=== PATIENT | female | born 1970 | race Caucasian/White ===

== ENCOUNTER 2017-05-01 19:52 | Emergency (ER) | payer OTHER ==
[2017-05-01 20:00] VITALS: BP 136/72
--- NOTE | 2017-05-01 21:07 | UC ---
Skin Complaint HPI - HPI Summary HPI Summary: BEE STING TO LEFT SHOULDER AND LEFT FOREARM ON 04/29/17. NO THROAT TIGHTENING, NO DIFFICULTY BREATHING, OR SHORTNESS OF BREATH. SWELLING AND REDNESS AT SITE OF STING SEEMS TO BE INCREASING OVER LAST TWO DAYS. - History of Current Complaint Chief Complaint: UCSkin Time Seen by Provider: 05/01/17 20:02 Stated Complaint: BEE STINGS X 2 DAYS AGO Hx Obtained From: Patient, Family/Durable Medical Equipment Technician Hx Last Menstrual Period: 05/11/17 Onset/Duration: Sudden Onset, Lasting Days, Still Present Skin Exposure Onset/Duration: Days Ago Onset Severity: Mild Current Severity: Mild Pain Intensity: 4 Pain Scale Used: 0-10 Numeric Location: Discrete - LEFT SHOULDER LEFT FOREARM Character: Pruritus, Redness, Raised Aggravating: Nothing Alleviating: Antihistamines Associated Signs & Symptoms: Positive: Rash, Tenderness Related History: Insect Bite/Sting, Possible Reaction to: Insect - Allergy/Home Medications Allergies/Adverse Reactions: Allergies Allergy/AdvReac Type Severity Reaction Status Date / Time No Known Allergies Allergy Verified 05/01/17 20:00 Review of Systems Constitutional: Negative Skin: Rash - LEFT SHOULDER, LEFT FOREARM Eyes: Negative ENT: Negative Respiratory: Negative Cardiovascular: Negative Gastrointestinal: Negative Genitourinary: Negative Motor: Negative Neurovascular: Negative Musculoskeletal: Negative Neurological: Negative Psychological: Negative All Other Systems Reviewed And Are Negative: Yes PMH/Surg Hx/FS Hx/Imm Hx Previously Healthy: Yes - Surgical History Surgical History: None Surgery Procedure, Year, and Place: cystocopy 1994, 2004 - Family History Known Family History: Negative: Diabetes - Social History Occupation: Employed Full-time Lives: With Family Alcohol Use: Rare Substance Use Type: None Smoking Status (MU): Never Smoked Tobacco Physical Exam Triage Information Reviewed: Yes Appearance: Well-Appearing, No Pain Distress, Well-Nourished Vital Signs: Initial Vital Signs Temp 98.4 F 05/01/17 19:57 Pulse 76 05/01/17 19:57 Resp 16 05/01/17 19:57 BP 136/72 05/01/17 19:57 Pulse Ox 100 05/01/17 19:57 Vital Signs Reviewed: Yes Eye Exam: Normal ENT Exam: Normal ENT: Positive: Normal ENT inspection, TMs normal Dental Exam: Normal Neck exam: Normal Neck: Positive: Supple, Nontender Respiratory Exam: Normal Respiratory: Positive: Chest non-tender, Lungs clear Cardiovascular Exam: Normal Cardiovascular: Positive: RRR, No Murmur Abdominal Exam: Normal Abdomen Description: Positive: Nontender, No Organomegaly Musculoskeletal Exam: Normal Neurological Exam: Normal Psychological Exam: Normal Skin: Positive: rashes - ERYTHEMA LEFT SHOULDER, LEFT FOREARM Course/Dx - Differential Diagnoses - Skin Complaint Differential Diagnoses: Cellulitis, Contact Dermatitis, Impetigo, MRSA, Poison Kira, Poison Viola, Systemic Illness, Tick Born Illness, Tinea, Urticaria, Varicella Zoster - Diagnoses Provider Diagnoses: INSCET BITE (BEE STING) LEFT SHOULDER, LEFT FOREARM Discharge - Discharge Plan Condition: Stable Disposition: HOME Prescriptions: Triamcinolone 0.1% Oint (NF) [Triamcinolone Acetonide] 1 % TOPICAL BID #1 tube Patient Education Materials: Insect Bite or Sting (ED) Referrals: Non Staff,Doctor [Primary Care Provider] - Images Front/Back of Body, Lg ([place]): 1 - 3CM X 2CM ERRYTHEMA 2 - 1CM X 2CM SCANT ERYTHEMA
== END 2017-05-01 20:29 | disposition home or self-care (01) ==
LOC: UCCORT 19:52
DX: T63.441A Toxic effect of venom of bees, accidental (unintentional), initial encounter (principal); M79.89 Other specified soft tissue disorders; Y92.9 Unspecified place or not applicable
CPT/HCPCS: 99212; G0463

== ENCOUNTER 2017-06-26 19:24 | Emergency (ER) | payer OTHER ==
[2017-06-26 19:41] VITALS: BP 130/74
--- NOTE | 2017-06-26 20:45 | UC ---
Skin Complaint HPI - HPI Summary HPI Summary: TWO DAYS OF TENDER ITCHY RASH ALONG CREASE OF ABDOMINAL FOLD ABOVE MONS. NO BLISTERS, NO DISCHARGE. NO FEVER. NO TRAUMA. NO TICK BITES. NO HISTORY OF MRSA - History of Current Complaint Chief Complaint: UCSkin Time Seen by Provider: 06/26/17 19:53 Stated Complaint: RASH LOWER ABDOMEN ? SHINGLES Hx Obtained From: Patient, Family/Librarian Hx Last Menstrual Period: 05/11/17 Onset/Duration: Gradual Onset, Lasting Days, Still Present Skin Exposure Onset/Duration: Days Ago Onset Severity: Mild Current Severity: Mild Pain Intensity: 0 Pain Scale Used: 0-10 Numeric Character: Pruritus, Redness, Painful - TENDER Aggravating: Touch Alleviating: Nothing, Unknown Associated Signs & Symptoms: Positive: Rash, Tenderness. Negative: Fever, Chills, Cough, Wheezing, Chest Pain, Hoarseness, Throat Tightening, Abdominal Pain, Syncope, Drainage, Bruising, Red Streaks Related History: Possible Reaction to: Environmental Exposure - Allergy/Home Medications Allergies/Adverse Reactions: Allergies Allergy/AdvReac Type Severity Reaction Status Date / Time No Known Allergies Allergy Verified 06/26/17 19:41 Home Medications: Home Medications [place] 50 SEE INSTRUCTIONS 06/26/17 [History] Review of Systems Constitutional: Negative Skin: Rash Eyes: Negative ENT: Negative Respiratory: Negative Cardiovascular: Negative Gastrointestinal: Negative Genitourinary: Negative Motor: Negative Neurovascular: Negative Musculoskeletal: Negative Neurological: Negative Psychological: Negative Is Patient Immunocompromised?: No All Other Systems Reviewed And Are Negative: Yes PMH/Surg Hx/FS Hx/Imm Hx Previously Healthy: Yes - Surgical History Surgical History: Yes Surgery Procedure, Year, and Place: cystocopy 1994, 2004. left knee arthroscopy 2003 - Family History Known Family History: Negative: Diabetes, Blood Disorder - Social History Occupation: Employed Full-time Lives: With Family Alcohol Use: None Substance Use Type: None Smoking Status (MU): Never Smoked Tobacco Physical Exam Triage Information Reviewed: Yes Appearance: Well-Appearing, No Pain Distress, Well-Nourished Vital Signs: Initial Vital Signs Temp 98.6 F 06/26/17 19:36 Pulse 84 06/26/17 19:36 Resp 16 06/26/17 19:36 BP 130/74 06/26/17 19:36 Pulse Ox 100 06/26/17 19:36 Vital Signs Reviewed: Yes Eye Exam: Normal ENT Exam: Normal ENT: Positive: Normal ENT inspection Dental Exam: Normal Neck exam: Normal Neck: Positive: Supple, Nontender Respiratory Exam: Normal Respiratory: Positive: Chest non-tender, Lungs clear, Normal breath sounds Cardiovascular Exam: Normal Cardiovascular: Positive: RRR, No Murmur, Pulses Normal Abdomen Description: Positive: Nontender, No Organomegaly, Soft, Other: - TENDER PRURITIC ERETHEMATOUS RASH ALONG THE INTERTRIGONAL CREASE OF ABDOMINAL FOLD ABOVE MONS Bowel Sounds: Positive: Present Musculoskeletal Exam: Normal Neurological Exam: Normal Psychological Exam: Normal Psychological: Positive: Normal Response To Family Skin: Positive: Other - TENDER PRURITIC ERETHEMATOUS RASH ALONG THE INTERTRIGONAL CREASE OF ABDOMINAL FOLD ABOVE MONS Course/Dx - Differential Diagnoses - Skin Complaint Differential Diagnoses: Abscess, Cellulitis, Contact Dermatitis, Diabetes, Drug Rash, MRSA, Poison Kira, Scabies, Tick Born Illness, Tinea, Urticaria, Varicella Zoster, Viral Exanthem - Diagnoses Provider Diagnoses: TINEA CORPORIS ABDOMEN Discharge - Discharge Plan Condition: Stable Disposition: HOME Prescriptions: Ketoconazole 2 % CREAM (NF) [Nizoral 2% CREAM (NF)] 1 applic TOPICAL TID #1 tube Patient Education Materials: Tinea Corporis (ED) Referrals: [facility] [place] [facility] [place]] Non Staff,Doctor [Primary Care Provider] - Images Front/Back of Body, Lg ([place]): 1 - TENDER PRURITIC ERETHEMATOUS RASH ALONG THE INTERTRIGONAL CREASE OF ABDOMINAL FOLD ABOVE MONS
== END 2017-06-26 20:15 | disposition home or self-care (01) ==
LOC: UCCORT 19:24
DX: B35.4 Tinea corporis (principal)
CPT/HCPCS: 99212; G0463